=== PATIENT | female | born 1990 ===

== ENCOUNTER 2017-05-02 21:20 | Emergency (ER) | payer SELFPAY ==
[2017-05-02 21:23] VITALS: BP 117/65; PULSE 105; RESP 16; TEMP 97.2; O2SAT 98
--- NOTE | 2017-05-02 21:48 | ED PDOC ---
HPI: Psych/Substance Abuse Time Seen by Provider: 05/02/17 21:26 Chief Complaint (Nursing): Alcohol Ingestion Chief Complaint (Provider): ETOH History Per: Patient Additional Complaint(s): Pt is a 26 yo female, PMH of Hypothyroidism, brought in for ETOH intoxication. Pt reports throwing up once while sitting on curb waiting for sober friend to get her car and police approached her and told her she needs to get evaluated. Pt offers no complaints at this time. admits to drinking. speaking in clear and full sentences. ambulates with steady gait. sober green party at bedside Past Medical History Reviewed: Nursing Documentation, Vital Signs Vital Signs: Last Vital Signs Temp 97.2 F L 05/02/17 21:21 Pulse 105 H 05/02/17 21:21 Resp 16 05/02/17 21:21 BP 117/65 05/02/17 21:21 Pulse Ox 98 05/02/17 21:21 - Medical History PMH: No Chronic Diseases - Surgical History Surgical History: No Surg Hx - Family History Family History: States: No Known Family Hx - Living Arrangements Living Arrangements: With Family - Social History Current smoker - smoking cessation education provided: No Alcohol: Social Drugs: Denies - Allergies Allergies/Adverse Reactions: Allergies Allergy/AdvReac Type Severity Reaction Status Date / Time No Known Allergies Allergy Verified 05/02/17 21:23 Review of Systems ROS Statement: Except As Marked, All Systems Reviewed And Found Negative Physical Exam - Reviewed Nursing Documentation Reviewed: Yes Vital Signs Reviewed: Yes - Physical Exam Appears: Positive for: Well, Non-toxic, No Acute Distress Head Exam: Positive for: ATRAUMATIC, NORMAL INSPECTION, NORMOCEPHALIC Skin: Positive for: Normal Color, Warm, DRY Eye Exam: Positive for: EOMI, Normal appearance, PERRL ENT: Positive for: Normal ENT Inspection Neck: Positive for: Normal, Painless ROM Cardiovascular/Chest: Positive for: Regular Rate, Rhythm Respiratory: Positive for: CNT, Normal Breath Sounds Gastrointestinal/Abdominal: Positive for: Normal Exam, Bowel Sounds, Soft Back: Positive for: Normal Inspection Extremity: Positive for: Normal ROM Neurologic/Psych: Positive for: Alert, Oriented - ECG O2 Sat by Pulse Oximetry: 98 Medical Decision Making Medical Decision Making: No medical intervention needed at this time. Sober green party at bedside. stable for discharge Disposition - Clinical Impression Clinical Impression: Alcohol use - Patient ED Disposition Is Patient to be Admitted: No - Disposition Disposition: Routine/Home Disposition Time: 21:48 Condition: STABLE Instructions: Alcohol Intoxication (ED) Forms: [employer] ([place]ian)
== END 2017-05-02 21:49 | disposition home or self-care (01) ==
LOC: H.ER 21:20
DX: F10.129 Alcohol abuse with intoxication, unspecified (principal); E03.9 Hypothyroidism, unspecified